=== PATIENT | female | born 2000 | race African-American/Black ===

== ENCOUNTER 2019-05-21 16:08 | Emergency (ER) | payer MEDICAID ==
[~2019-05-21] VITALS: Ht 160 cm; Wt 47.8 kg
[2019-05-21 16:15] VITALS: Ht 160 cm; Wt 47.8 kg
[2019-05-21 19:14] LABS: PLATELET COUNT 254 x10^3mcL (130-400); RED CELL DISTRIBUTION WIDTH 14.2 % (11.5-14.5)
[2019-05-21 19:20] LABS: CALCIUM 8.6 mg/dL (8.5-10.1); CHLORIDE SERUM 106 mmol/L (98-107); CREATININE SERUM 0.8 mg/dL (0.6-1.0); GFR1 > 60 mL/min; GLUCOSE SERUM 82 mg/dL (74-106); POTASSIUM SERUM 3.9 mmol/L (3.5-5.1); SODIUM SERUM 144 mmol/L (136-145)
[2019-05-21 19:25] LABS: ALKALINE PHOSPHATASE 43 U/L (46-116); ALT/SGPT 17 U/L (14-59); AMYLASE 24 U/L (25-115); AST/SGOT 9 U/L (15-37); BILIRUBIN TOTAL 0.36 mg/dL (0.20-1.00); LIPASE 59 IU/L (73-393); TOTAL PROTEIN, SERUM 7.9 g/dL (6.4-8.2)
[2019-05-21 21:07] VITALS: BP 103/50
== END 2019-05-21 21:07 | disposition home or self-care (01) ==
LOC: ED 16:08
PROVIDERS: Specialist
DX: R10.11 Right upper quadrant pain (principal)
CPT/HCPCS: 36415; J1885

== ENCOUNTER 2020-09-22 06:24 | Emergency (ER) | payer OTHER ==
[~2020-09-22] VITALS: Ht 160 cm; Wt 55.3 kg
[2020-09-22 07:12] VITALS: BP 118/80; Ht 160 cm; Wt 55.3 kg
== END 2020-09-22 09:36 | disposition left against medical advice (07) ==
LOC: ED 06:24
DX: R10.31 Right lower quadrant pain (principal); N94.6 Dysmenorrhea, unspecified